=== PATIENT | female | born 1965 | race Caucasian/White ===

== ENCOUNTER → 2017-06-16 | Outpatient (CLI) | payer OTHER | LOC: FIMAGING 11:37 | PROVIDERS: ATTEND Family Medicine | DX: Z12.31 Encounter for screening mammogram for malignant neoplasm of breast (principal) | CPT/HCPCS: G0202 ==

== ENCOUNTER 2017-07-10 19:12 | Emergency (ER) | payer OTHER ==
[2017-07-10 19:28] VITALS: RESP 16; TEMP 98.1
[2017-07-10] MEDS ORDERED: HYDROmorphONE/DILAUDID 1 MG/ML SYR IVP ONE (19:56)
[2017-07-10] MEDS ORDERED: NS 1,000 ML IV ONE (19:56)
[2017-07-10] MEDS ORDERED: METOCLOPRAMIDE 10 MG/2 ML VIAL IVP ONE (19:56)
[2017-07-10] MEDS ORDERED: DEXAMETHASONE 10 MG/ML VIAL IVP ONE (19:56)
--- NOTE | 2017-07-10 20:01 | EDPHY ---
H & P Stated Complaint: BURTON since last night, photophobia Time Seen by Provider: 07/10/17 19:51 HPI/ROS: CHIEF COMPLAINT: Headache HISTORY OF PRESENT ILLNESS: Patient is a 51-year-old female who comes to the emergency department complaining of right congregation region headache that began last night when she woke from sleep. She does not typically get headaches. She does not have migraines. She denies any visual changes. She denies claudication. She does not have a rash or swelling. She states that it is starting to improve. She denies any trauma. No fevers. No weakness numbness or paresthesias. REVIEW OF SYSTEMS: Constitutional: denies: chills, fever, recent illness, recent injury EENTM: denies: blurred vision, double vision, nose congestion Respiratory: denies: cough, shortness of breath Cardiac: denies: chest pain, irregular heart rate, lightheadedness, palpitations Gastrointestinal/Abdominal: denies: abdominal pain, diarrhea, nausea, vomiting, blood streaked stools Genitourinary: denies: dysuria, frequency, hematuria, pain Musculoskeletal: denies: joint pain, muscle pain Skin: denies: lesions, rash, jaundice, bruising Neurological: See HPI denies: numbness, paresthesia, tingling, dizziness, weakness Hematologic/Lymphatic: denies: blood clots, easy bleeding, easy bruising Immunologic/allergic: denies: HIV/AIDS, transplant EXAM: GENERAL: Well-appearing, well-nourished and in no acute distress. HEAD: Atraumatic, normocephalic. EYES: Pupils equal round and reactive to light, extraocular movements intact, sclera anicteric, conjunctiva are normal. Normal visual acuity. ENT: No temporal swelling or tenderness. No erythema. No lesions. TMs normal , nares patent, oropharynx clear without exudates. Moist mucous membranes. NECK: Normal range of motion, supple without lymphadenopathy or JVD. LUNGS: Breath sounds clear to auscultation bilaterally and equal. No wheezes rales or rhonchi. HEART: Regular rate and rhythm without murmurs, rubs or gallops. ABDOMEN: Soft, nontender, normoactive bowel sounds. No guarding, no rebound. No masses appreciated. BACK: No CVA tenderness, no spinal tenderness, step-offs or deformities EXTREMITIES: Normal range of motion, no pitting or edema. No clubbing or cyanosis. NEUROLOGICAL: Cranial nerves II through XII grossly intact. Normal speech, normal gait. 5/5 strength, normal movement in all extremities, normal sensation PSYCH: Normal mood, normal affect. SKIN: Warm, dry, normal turgor, no visible rashes or lesions. Source: Patient Exam Limitations: No limitations - Personal History LMP (Females 10-55): Post Menopausal Current Tetanus/Diphtheria Vaccine: Yes Current Tetanus Diphtheria and Acellular Pertussis (TDAP): Yes Tetanus Vaccine Date: 2005 - Medical/Surgical History Hx Asthma: No Hx Chronic Respiratory Disease: No Hx Diabetes: No Hx Cardiac Disease: No Hx Renal Disease: No Hx Cirrhosis: No Hx Alcoholism: No Hx HIV/AIDS: No Hx Splenectomy or Spleen Trauma: No Other PMH: PMH: denies. PSH: hip surg, - Family History Significant Family History: No pertinent family hx - Social History Smoking Status: Never smoked Alcohol Use: Sober Drug Use: None Constitutional: Initial Vital Signs Temperature (C) 36.7 C 07/10/17 19:25 Heart Rate 62 07/10/17 19:25 Respiratory Rate 16 07/10/17 19:25 Blood Pressure 114/69 07/10/17 19:25 O2 Sat (%) 97 07/10/17 19:25 O2 Delivery Mode Room Air Allergies/Adverse Reactions: No Known Allergies Allergy (Unverified 12/25/12 17:42) Home Medications: Medication Instructions Recorded Sen[place]-3 Fatty Acids [Fish Oil 1000 2,000 mg PO DAILY 12/25/12 mg (OTC)] Pharmacist Completed 12/25/12 12/25/12 cycloSPORINE 0.05% [Restasis Opht 1 drop EACHEYE BID 12/25/12 Drops(RX)] Flonase Allergy Relief 07/10/17 Gilbert's Wort 07/10/17 Medical Decision Making ED Course/Re-evaluation: 9:04 p.m. the patient feels completely better. We discussed CT and lab results which are reassuring. No sign of inflammation. I offered lumbar puncture to rule out subarachnoid which she declines. She understands the risks versus benefits. She will return if her symptoms worsen. She declines further observation or treatment and is eager to go home. Differential Diagnosis: Partial list of the Differential diagnosis considered include but were not limited to; tension headache or migraine headache and although unlikely based on the history and physical exam, I also considered subarachnoid, infection, tumor, seizure. I discussed these differential diagnoses and the plan with the patient as well as the usual and expected course. The patient understands that the diagnosis is provisional and that in medicine we are not always correct and that further workup is often warranted. Usual and customary warnings were given. All of the patient's questions were answered. The patient was instructed to return to the emergency department should the symptoms at all worsen or return, otherwise to followup with the physician as we discussed. - Data Points Laboratory Results: Laboratory Results 07/10/17 20:00 07/10/17 20:00 Medications Given: Discontinued Medications Dexamethasone (Decadron Injection) 10 mg IVP EDNOW ONE Stop: 07/10/17 19:57 Last Admin: 07/10/17 20:08 Dose: 10 mg Hydromorphone HCl (Dilaudid) 0.5 mg IVP EDNOW ONE Stop: 07/10/17 19:57 Last Admin: 07/10/17 20:08 Dose: 0.5 mg Sodium Chloride (Ns) 1,000 mls @ 0 mls/hr IV ONCE ONE; Wide Open PRN Reason: Protocol Stop: 07/10/17 19:57 Last Admin: 07/10/17 20:07 Dose: 1,000 mls Metoclopramide HCl (Reglan Injection) 10 mg IVP EDNOW ONE Stop: 07/10/17 19:57 Last Admin: 07/10/17 20:08 Dose: 10 mg Departure - Departure Disposition: Home, Routine, Self-Care Clinical Impression: Headache Qualifiers: Headache type: unspecified Headache chronicity pattern: acute headache Intractability: not intractable Qualified Code(s): R51 - Headache Condition: Fair Instructions: Acute Headache (ED) Referrals: Adri Kelly MD [Primary Care Provider] - As per Instructions ED,PHYSICIAN JOVANY [Medical Doctor] - 1 day, if not improved
[2017-07-10 20:31] LABS: % IMMATURE GRANULYOCYTES 0.2 % (0.0-1.1); ABSOLUTE IMMATURE GRANULOCYTES 0.01 10^3/uL (0.00-0.10); ADD DIFF? NO; ADD MORPH? NO; ADD SCAN? NO; ATYPICAL LYMPHOCYTE FLAG 30 (0-99); FRAGMENT RBC FLAG 0 (0-99); HEMATOCRIT 35.4 % (38.0-47.0); HEMOGLOBIN 12.8 g/dL (12.6-16.3); LEFT SHIFT FLG 0 (0-99); LIPEMIA HEMOLYSIS FLAG 90 (0-99); MEAN CELL HEMOGLOBIN 31.5 pg (27.9-34.1); MEAN CELL HEMOGLOBIN CONCENTR. 36.2 g/dL (32.4-36.7); MEAN CELL VOLUME 87.2 fL (81.5-99.8); MEAN PLATELET VOLUME 10.8 fL (8.7-11.7); PLATELET CLUMPS FLAG 10 (0-99); PLATELET COUNT 129 10^3/uL (150-400); RED BLOOD CELL COUNT 4.06 10^6/uL (4.18-5.33); RED CELL DISTRIBUTION WIDTH 11.7 % (11.5-15.2)
[2017-07-10 20:40] LABS: INR 1.03 (0.83-1.16); PROTIME(PATIENT) 13.4 SEC (12.0-15.0)
[2017-07-10 20:46] LABS: ANION GAP 11 mEq/L (8-16); C-REACTIVE PROTEIN < 5.0 mg/L (<10.0); CARBON DIOXIDE 23 mEq/l (22-31); CHLORIDE 105 mEq/L (97-110); GLOMERULAR FILTRATION RATE 58; GLUCOSE 85 mg/dL (70-100); POTASSIUM 3.7 mEq/L (3.5-5.2); SODIUM 139 mEq/L (134-144)
[2017-07-10 20:49] LABS: SEDIMENTATION RATE 15 MM/HR (0-30)
[2017-07-10 21:17] VITALS: BP 100/61; PULSE 55; O2SAT 96
== END 2017-07-10 21:16 | disposition home or self-care (01) ==
PROC: 3E0337Z Introduction of Electrolytic and Water Balance Substance into Peripheral Vein, Percutaneous Approach (ICD-10-PCS; principal; 2017-07-10)
DX: R51 Headache (principal); E86.9 Volume depletion, unspecified
CPT/HCPCS: 96374; J1100; J1170; J2765